=== PATIENT | male | born 1980 | race Caucasian/White ===

== ENCOUNTER 2023-04-01 14:47 | Emergency (ER) | payer OTHER ==
[~2023-04-01] VITALS: Ht 188 cm; Wt 84.0 kg
[2023-04-01] MEDS ORDERED: LIDOCAINE HCL/EPINEPHRINE 1%-EPI 1:100,000 20 ML VIAL INFIL ONE (15:30)
[2023-04-01] MEDS ORDERED: BACITRACIN ZINC OINT UDPKT TOP ONE (15:30)
[2023-04-01] MEDS ORDERED: ACETAMINOPHEN 325MG TABLET PO ONE (15:30)
[2023-04-01] MEDS ORDERED: TETANUS, DIPHTHERIA, PERTUSSIS VAC/PF 0.5ML (>10YR OLD) IM ONE (15:30)
[2023-04-01 16:02] LABS: HEMATOCRIT. 34.6 % (42.0-52.0); MEAN CORPUSCULAR HEMOGLOBIN 32.1 pg (28.0-32.0); MEAN CORPUSCULAR VOLUME 92.3 fL (80.0-94.0); MEAN PLATELET VOLUME 8.5 fl (7.4-10.4); PLATELET 298 x1000/uL (130-400); RED BLOOD CELL COUNT 3.75 mill/uL (4.7-6.1); RED CELL DISTRIBUTION WIDTH 14.5 % (11.6-14.6)
[2023-04-01 16:07] LABS: CHLORIDE 108 mEq/L (98-107)
[2023-04-01 16:13] LABS: ETHANOL BLOOD < 10 mg/dL
[2023-04-01] MEDS ORDERED: LIDOCAINE 1%/EPI 1:200,000 10 ML VIAL IJ SCH (16:15)
[2023-04-01 16:25] LABS: PLATELET ESTIMATE NORMAL
[2023-04-01 20:47] VITALS: BP 110/68
== END 2023-04-01 20:48 | disposition home or self-care (01) ==
LOC: ER 15:06
DX: S09.90XA Unspecified injury of head, initial encounter (principal); R56.9 Unspecified convulsions; X58.XXXA Exposure to other specified factors, initial encounter; Y93.89 Activity, other specified; Y92.89 Other specified places as the place of occurrence of the external cause; Y99.8 Other external cause status; F11.10 Opioid abuse, uncomplicated
CPT/HCPCS: 12013; 36415; 70450; 80053; 80320; 85025; 90471; 90715; 99285; Z7610; J3490; G0480